=== PATIENT | male | born 1985 | race Caucasian/White ===

== ENCOUNTER 2016-12-20 19:26 | Emergency (ER) | payer OTHER ==
[~2016-12-20] VITALS: Ht 165.1 cm; Wt 85.0 kg
[2016-12-20 19:33] VITALS: BP 142/90; PULSE 92; RESP 16; O2SAT 99
--- NOTE | 2016-12-20 20:14 | ED.REPORT ---
HPI-General Illness Date of Service Dec 20, 2016 ED Provider: Dr. Jensen Pt is a 31 y/o male w/ a hx of anxiety presenting to the ED c/o chronic anxiety. The patient has been experiencing anxiety and panic attacks for 14 years and is prescribed benzodiazepines but not antidepressants other than a short trial of 20 mg Citalopram. He says his panic attacks are atypical and manifest mostly as worrying about him losing his mind or thoughts of hurting people. He says that he has gone through therapy without any relief and his primary concern is that he wants to know what the cause of his anxiety is. His and he have gone through multiple periods of separation within the past year and this effect on his children is causing him stress. He has been experiencing fleeting thoughts of suicide and is currently feeling suicidal because he is exhausted from going through all of his daily activities with this underlying anxiety and panic attacks. Nursing Notes Stated Complaint: MENTAL HEALTH Chief Complaint: Psychiatric Complaint Nursing Notes Reviewed: Yes Allergies: Coded Allergies: No Known Allergies (Unverified , 12/20/16) Scheduled Sertraline HCl (Zoloft) 25 Mg Tablet 25 MG PO DAILY General Time Seen by MD: 20:14 Chief Complaint Other (anxiety) Hx Obtained From: Patient Arrived By: Walk-in Sudden in Onset?: No Onset Occurred: More than a week ago... Symptom Duration: Since onset Severity: Current: No pain currently Severity: Maximum: No pain Recent Healthcare: Previous diagnosis, Prior workup Similar Sx Previous: Yes Past Medical History Past Medical History Chronic anxiety and panic attacks Past Surgical History None reported Smoking History Current Every Day Smoker Ambulatory Status Independent Review of Systems Full Review of Systems Neurologic: Denies: Confusion Psychiatric: Reports: Anxiety, Depression, Stress, Suicidal ideation, Denies: Delusional, Hallucinations, auditory, Hallucinations, visual Complete sys rev & neg: except as marked. Physical Exam Vital Signs Vital Signs Date Time Temp Pulse Resp B/P Pulse Ox O2 Delivery O2 Flow Rate FiO2 12/20/16 23:26 37.0 89 14 138/88 98 Room Air 12/20/16 19:33 37.3 92 16 142/90 99 Room Air Initial VS: Reviewed, Vital signs normal Head / Eyes: Atraumatic, Normocephalic, PERRL ENT: Mucous membranes moist, Conjunctiva normal Neck: Full range of motion Respiratory: No respiratory distress Extremities: Vascular intact, Neuro intact, No swelling Skin: Warm, Dry, No cyanosis Neurologic: Alert, Oriented, Nonfocal General/Constitutional: Awake, Alert, No acute distress, Well appearing, Cooperative, Not toxic appearing Psychiatric: Not homicidal, No hallucinations, Cognitive function NL, Judgment/ insight NL Abnormal Thinking / Perception: Positive: Suicidal, no plan Mildly tearful Mild emotional distress Can be moved to tears without great difficulty Very pleasant to speak to Interpretation & Diagnostics Lab Results Interpretation Test 12/20/16 20:22 Hold Urine Received (Received) Re-Eval/Medical Decision Med Decision/Clinical Course 31-year-old with chronic anxiety and panic disorder presents with "frustration" he is essentially untreated over a long period of time, having seen a single effort and an antidepressant at a minimal dose for minimal length of time. He has no counseling resources presently. I had a long discussion with him emphasizing the need for combined therapy with talk therapy and antidepressants. I have discouraged use of benzodiazepines, which she is wary of in any case. Gun with Zoloft, as he has a preconception at this point that citalopram is not useful. He was informed and emphasize that this is an initial dose, and will require a minimum three to four-week trial before advancing the dose, and that he may ultimately need several dosages advances before concluding that it is not working. In the meantime, avoid benzodiazepines and use Vistaril or Benadryl for sleep at night. Prompt return of suicidal or homicidal. [facility] referral for counseling. Time of Eval: 23:12 Re-Evaluation/Progress Note: Pt rechecked. He is feeling much better after speaking with the social and human services assistant and myself. Informed pt of plan for discharge. Pt understands and agrees with plan for discharge. F/U instructions and RTER warnings given. All questions addressed. 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: Will see patient, Agrees with eval, Agrees with plan Counseled Regarding: Diagnosis, Lab results, Need for follow-up, When/why to return to ED Discharge & Departure Primary Impression: Depression Depression Type: unspecified Qualified Code: F32.9 - Major depressive disorder, single episode, unspecified Additional Impressions: Anxiety Panic disorder Disposition: Home Discharge Condition All VS Reviewed: Yes Condition: Stable Patient Instructions: Depression (ED), Panic Disorder (ED) Additional Instructions: Please arrange counseling services as discussed with the social and human services assistant. You may begin Zoloft if desired to start your therapy. This will not diminish the need for therapy. You still need to make appointments and follow-up. This is also a starter dose. Your clinician may need to increase it after a couple of weeks. A dose of 50-100 mg daily would not be unusual in an adult. Return if you are feeling unsafe. Follow-up with your doctor. Referrals: Bianca Butterfield PA-C (PCP) Scribe Attestation Portions of this note were transcribed by Omar Salgado. I, Dr. Jensen, personally performed the history, physical exam and medical decision-making; I reviewed and confirmed the accuracy of the information in the transcribed note. copies to: Bianca Butterfield PA-C, Christopher W MD Dec 20, 2016 20:14 OMAR SALGADO Dec 20, 2016 20:28
[2016-12-20] MEDS ORDERED: SERT25TA2 PO (23:06)
[2016-12-20 23:26] VITALS: BP 138/88; PULSE 89; RESP 14; O2SAT 98
== END 2016-12-20 23:10 | disposition home or self-care (01) ==
LOC: SED 19:26
DX: F32.9 Major depressive disorder, single episode, unspecified (principal); F41.0 Panic disorder [episodic paroxysmal anxiety]; F17.210 Nicotine dependence, cigarettes, uncomplicated
CPT/HCPCS: 82075; 99284; Q0177